=== PATIENT | female | born 1945 | race Caucasian/White ===

== ENCOUNTER → 2016-06-04 | Outpatient (REF) | payer MEDICARE, OTHER ==
[~2016-06-04] MED LIST: /OMEP10CA PO; ASPI325T PO; BIMA01SOL OU; CALCIUM WITH VIT D; DESM1TAB4 PO; FISH120012 PO; HYDR-727; IMBR1CAP PO; LEVA500T; LISI10TA2 PO; MACR100C3 PO; MULTIVIT; NORCOTAB PO; SLOWTAB2 PO; TRAVATAN; Trimethoprim/Sulfamethoxazole PO; ZOCO20TA; ZOFR4SOL PO
[2016-06-04 13:16] LABS: RETIC HEMOGLOBIN CONTENT CHr 33.4 PG (24-36); RETICULOCYTE % ADVIA2120 1.2 % (0.5-1.5)
== END ==
LOC: M LAB REF 12:38
PROVIDERS: ATTEND Internal Medicine Medical Oncology
DX: C91.10 Chronic lymphocytic leukemia of B-cell type not having achieved remission (principal)

== ENCOUNTER → 2016-08-02 | Outpatient (REF) | payer MEDICARE, OTHER ==
[~2016-08-02] MED LIST changes: +CALC600T21 PO; +CRAN500C6 PO; +VITA30004 PO
[2016-08-02 12:39] LABS: RETIC HEMOGLOBIN CONTENT CHr 31.8 PG (24-36); RETICULOCYTE % ADVIA2120 2.4 % (0.5-1.5)
== END ==
LOC: M LAB REF 12:17
PROVIDERS: ATTEND Internal Medicine Medical Oncology
DX: C91.10 Chronic lymphocytic leukemia of B-cell type not having achieved remission (principal)

== ENCOUNTER → 2016-08-08 | Outpatient (CLI) | payer MEDICARE, OTHER ==
[~2016-08-08] VITALS: Ht 167.6 cm; Wt 102.1 kg
[~2016-08-08] MED LIST changes: +LIDOCAINE 2% INJ 100 MG/5 ML SDV (FOR ANES.) As Ordered ONE; +NS 1,000 ML IV SCH; +PROPOFOL 200 MG/20 ML VIAL As Ordered ONE
--- NOTE | 2016-08-08 11:48 | ROOR ---
Patient Name: Ingrid Ellis Procedure Date: 08/08/2016 11:19 AM Date of : 1945 Age: 70 Room: [facility] Gender: Female Note Status: Finalized Procedure: Colonoscopy Indications: Screening for colorectal malignant neoplasm Providers: Hardy HERNANDEZ MD Referring MD: KADEN SHAW MD Requesting Provider: Medicines: Monitored Anesthesia Care Complications: No immediate complications. Procedure: Pre-Anesthesia Assessment: - The heart rate, respiratory rate, oxygen saturations, blood pressure, adequacy of pulmonary ventilation, and response to care were monitored throughout the procedure. The Colonoscope was introduced through the anus and advanced to the cecum, identified by appendiceal orifice and ileocecal valve. The colonoscopy was performed without difficulty. The patient tolerated the procedure well. The quality of the bowel preparation was good. Findings: The perianal and digital rectal examinations were normal. Internal hemorrhoids were found during retroflexion. The hemorrhoids were medium-sized. The colon is long and redundant, but is otherwise normal on direct and retroflexion views. (Exam: Complete, Prep: Good or Excellent.) Impression: - Internal hemorrhoids. - The entire colon is normal on direct and retroflexion views. - No specimens collected. Recommendation: - Repeat colonoscopy in 10 years for screening purposes. Hardy Hernandez MD Hardy HERNANDEZ MD 08/08/2016 11:48:07 AM This report has been signed electronically. Number of Addenda: 0 Note Initiated On: 08/08/2016 11:19 AM Estimated Blood Loss: Estimated blood loss: none.
[2016-08-08 12:10] VITALS: BP 136/72
== END | disposition home or self-care (01) ==
LOC: M OPP 09:54
PROVIDERS: ATTEND Internal Medicine Gastroenterology
DX: Z12.11 Encounter for screening for malignant neoplasm of colon (principal); K64.8 Other hemorrhoids; Q43.8 Other specified congenital malformations of intestine; E78.5 Hyperlipidemia, unspecified; C91.10 Chronic lymphocytic leukemia of B-cell type not having achieved remission; Z92.21 Personal history of antineoplastic chemotherapy; M19.90 Unspecified osteoarthritis, unspecified site; Z78.0 Asymptomatic menopausal state; Z88.8 Allergy status to other drugs, medicaments and biological substances; Z91.041 Radiographic dye allergy status; Z88.0 Allergy status to penicillin; Z91.013 Allergy to seafood; Z79.2 Long term (current) use of antibiotics; Z79.899 Other long term (current) drug therapy; Z80.3 Family history of malignant neoplasm of breast
CPT/HCPCS: 99156; 99157; G0121

== ENCOUNTER → 2016-11-04 | Outpatient (REF) | payer MEDICARE, OTHER ==
[~2016-11-04] MED LIST changes: -LIDOCAINE 2% INJ 100 MG/5 ML SDV (FOR ANES.) As Ordered ONE; -NS 1,000 ML IV SCH; -PROPOFOL 200 MG/20 ML VIAL As Ordered ONE
[2016-11-04 13:07] LABS: RETIC HEMOGLOBIN CONTENT CHr 31.7 PG (24-36); RETICULOCYTE % ADVIA2120 1.3 % (0.5-1.5)
== END ==
LOC: M LAB REF 12:30
PROVIDERS: ATTEND Internal Medicine Medical Oncology
DX: C91.10 Chronic lymphocytic leukemia of B-cell type not having achieved remission (principal)

== ENCOUNTER → 2017-02-04 | Outpatient (REF) | payer MEDICARE, OTHER ==
[~2017-02-04] MED LIST changes: -CALC600T21 PO; +CALC600T60 PO; +CRAN500C PO; -CRAN500C6 PO; -MACR100C3 PO; +MACR100C43 PO
[2017-02-04 13:52] LABS: RETICULOCYTE % 1.5 % (0.5-1.5)
== END ==
LOC: M LAB REF 09:18
PROVIDERS: ATTEND Internal Medicine Medical Oncology
DX: C91.10 Chronic lymphocytic leukemia of B-cell type not having achieved remission (principal)

== ENCOUNTER → 2017-05-07 | Outpatient (REF) | payer MEDICARE, OTHER ==
[2017-05-07 14:01] LABS: RETIC HEMOGLOBIN EQUIVALENT 36.4 pg (24-36); RETICULOCYTE % 1.2 % (0.5-1.5)
== END ==
LOC: M LAB REF 13:28
PROVIDERS: ATTEND Internal Medicine Medical Oncology
DX: C91.10 Chronic lymphocytic leukemia of B-cell type not having achieved remission (principal)

== ENCOUNTER → 2017-08-11 | Outpatient (CLI) | payer MEDICARE, OTHER ==
[2017-08-11 11:37] LABS: ANION GAP 7 MEQ/L (8-16); BLOOD UREA NITROGEN 21 MG/DL (7-18); CALCIUM LEVEL 8.8 MG/DL (8.8-10.2); CARBON DIOXIDE LEVEL 28 MEQ/L (21-32); CHLORIDE LEVEL 112 MEQ/L (98-107); CREATININE FOR GFR 0.88 MG/DL (0.55-1.30); GLOMERULAR FILTRATION RATE > 60.0 (>39); GLUCOSE, FASTING 77 MG/DL (70-100); POTASSIUM SERUM 4.6 MEQ/L (3.5-5.1); SODIUM LEVEL 147 MEQ/L (136-145)
[2017-08-11 11:39] LABS: INR 0.98; PROTHROMBIN TIME 13.1 SECONDS (12.4-14.5)
[2017-08-11 11:40] LABS: PARTIAL THROMBOPLASTIN TIME 27.6 SECONDS (26.8-37.9)
== END ==
LOC: M LAB 10:33
DX: Z01.818 Encounter for other preprocedural examination (principal)
CPT/HCPCS: 71046

== ENCOUNTER 2017-08-18 11:17 | Day surgery (SDC) | payer MEDICARE, OTHER ==
[2017-08-18] MEDS: LR 1,000 ML IV (12:06)
[2017-08-18] MEDS: VANCOMYCIN HCL 1,000 MG, VIAL MATE ADAPTER 1 EACH in D5W 250 ML IV (12:21)
[2017-08-18] MEDS ORDERED: fentaNYL 100 MCG/2 ML INJECTION (J3010) As Ordered (13:09)
[2017-08-18] MEDS ORDERED: MIDAZOLAM INJ 2 MG/2 ML VIAL (J2250) As Ordered (13:09)
[2017-08-18] MEDS ORDERED: PROPOFOL 200 MG/20 ML VIAL As Ordered (13:09)
[2017-08-18] MEDS: MUPIROCIN 2% OINT 22 GM TUBE TOP (13:18)
[2017-08-18] MEDS: BUPIVACAINE LIPOSOME/PF 1.3% 20 ML VIAL (13.3MG/ML)(EXPAREL) As Ordered (13:26)
[2017-08-18] MEDS ORDERED: PERCOCET 5MG/325MG TAB PO ×2 (14:15)
[2017-08-18] MEDS ORDERED: MORPHINE 10 MG/ML 1ML VIAL (J2270) IV (14:15)
[2017-08-18] MEDS ORDERED: ONDANSETRON 4MG/2ML VIAL (J2405) IV (14:15)
[2017-08-18] MEDS ORDERED: LR 1,000 ML IV (14:15)
[2017-08-18] MEDS ORDERED: fentaNYL 100 MCG/2 ML INJECTION (J3010) IV (14:15)
== END 2017-08-18 15:08 | disposition home or self-care (01) ==
LOC: M SDC 11:17
DX: Z45.2 Encounter for adjustment and management of vascular access device (principal); C91.11 Chronic lymphocytic leukemia of B-cell type in remission; H40.9 Unspecified glaucoma; E78.5 Hyperlipidemia, unspecified; E23.2 Diabetes insipidus; I10 Essential (primary) hypertension; D64.9 Anemia, unspecified; R23.3 Spontaneous ecchymoses; M12.9 Arthropathy, unspecified; Z88.0 Allergy status to penicillin; Z88.8 Allergy status to other drugs, medicaments and biological substances; Z91.013 Allergy to seafood; Z91.041 Radiographic dye allergy status; Z79.899 Other long term (current) drug therapy; Z96.1 Presence of intraocular lens; Z92.21 Personal history of antineoplastic chemotherapy; Z87.81 Personal history of (healed) traumatic fracture; Z78.0 Asymptomatic menopausal state
CPT/HCPCS: 36590

== ENCOUNTER → 2018-03-02 | Outpatient (CLI) | payer MEDICARE, OTHER | LOC: M WHC 14:15 | DX: Z12.31 Encounter for screening mammogram for malignant neoplasm of breast (principal) | CPT/HCPCS: 77067 ==

== ENCOUNTER → 2019-03-12 | Outpatient (CLI) | payer MEDICARE, OTHER ==
[~2019-03-12] MED LIST changes: +ASPI-1 PO; -ASPI325T PO; +DESM0.1T2 PO; -DESM1TAB4 PO; +FISH120016 PO; +HYDR-3715 PO; +LIPI10TA PO; +MAGN250T7 PO; -NORCOTAB PO; +PREDOPD; +TIMOXEOPD OP
--- NOTE | 2019-03-12 13:35 | REP ---
Chest x-ray: Three views. History: Dyspnea. Comparison chest x-ray: August 18, 2017. Findings: The lungs are symmetrically aerated and clear. The pleural angles are sharp. Heart size is normal. Pulmonary vasculature is not increased. The thoracic aorta somewhat tortuous as before. Impression: No active disease. Electronically Signed by James Finnegan MD 03/12/2019 01:26 P
== END ==
LOC: M WUC 12:32
PROVIDERS: ATTEND Internal Medicine
DX: R06.09 Other forms of dyspnea (principal)

== ENCOUNTER → 2019-03-22 | Outpatient (CLI) | payer MEDICARE, OTHER ==
--- NOTE | 2019-03-22 13:57 | REPMRS ---
Patient History The patient states she has not had a clinical breast exam in over a year. Family history of breast cancer at age 60 in mother, prostate cancer at age 70 in maternal uncle, breast cancer at age 50 in maternal aunt. 3D TOMOSYNTHESIS WAS PERFORMED. The Cher Siddiqui lifetime risk for breast cancer is 9.5%. Digital Woman Screen Mammo: March 22, 2019 - Exam #: [id number] Bilateral CC and MLO view(s) were taken. Technologist: Makenna Moreno Technologist Prior study comparison: March 02, 2018, bilateral digital woman screen mammo performed at [facility]. 2017, bilateral digital woman screen mammo, performed at [facility]. FINDINGS: There are scattered fibroglandular densities. There has been no change in the appearance of the mammogram from the prior studies. There is a mild amount of residual fibroglandular tissue which is fairly symmetric. There is no interval development of dominant mass, architectural distortion, or clustered microcalcification suggestive of malignancy. Assessment: BI-RADS/ACR category 1 mammogram. Negative Mammogram. Recommendation Routine screening mammogram in 1 year (for women over age 40). This mammogram was interpreted with the aid of an FDA-approved computer-aided dectection system. Electronically Signed By: Bakari Coronado MD 03/22/19 [id number]
== END ==
LOC: M WHC 12:57
PROVIDERS: ATTEND Internal Medicine
DX: Z12.31 Encounter for screening mammogram for malignant neoplasm of breast (principal); Z80.3 Family history of malignant neoplasm of breast

== ENCOUNTER → 2019-11-02 | Outpatient (CLI) | payer MEDICARE, OTHER ==
[~2019-11-02] MED LIST changes: +SIMB1SUS OP
[2019-11-02 17:07] LABS: BASO % 0.6 % (0.0-1.0); EOS # 0.3 10^3/uL (0.0-0.5); EOS % 5.3 % (0.0-3.0); HEMATOCRIT 41.7 % (36.0-47.0); HEMOGLOBIN 13.2 g/dl (12.0-15.5); LYMPH # 1.7 10^3/uL (1.5-5.0); LYMPH % 35.4 % (24.0-44.0); MEAN CORPUSCULAR HEMOGLOBIN 30.2 pg (27.0-33.0); MEAN CORPUSCULAR HGB CONC 31.7 g/dl (32.0-36.5); MEAN CORPUSCULAR VOLUME 95.4 fl (80.0-96.0); MONO # 0.8 10^3/uL (0.0-0.8); MONO % 15.9 % (0.0-5.0); NEUTROPHILS # 2.1 10^3/uL (1.5-8.5); NEUTROPHILS % 42.2 % (36.0-66.0); RED BLOOD COUNT 4.37 10^6/uL (4.00-5.40); WHITE BLOOD COUNT 4.9 10^3/uL (4.0-10.0)
[2019-11-02 17:10] LABS: PLATELET COUNT, AUTOMATED 89 10^3/uL (150-450)
[2019-11-02 18:39] LABS: ALBUMIN 3.7 GM/DL (3.2-5.2); ALT/SGPT 38 U/L (12-78); BILIRUBIN,TOTAL 0.6 MG/DL (0.2-1.0); BLOOD UREA NITROGEN 20 MG/DL (7-18); CALCIUM LEVEL 9.1 MG/DL (8.8-10.2); CARBON DIOXIDE LEVEL 30 MEQ/L (21-32); CHLORIDE LEVEL 109 MEQ/L (98-107); CREATININE FOR GFR 0.94 MG/DL (0.55-1.30); GLOMERULAR FILTRATION RATE > 60.0 (>39); GLUCOSE, FASTING 78 MG/DL (70-100); IMMUNOGLOBULIN A 12.5 MG/DL (70-400); IMMUNOGLOBULIN G 79 MG/DL (681-1648); LDH LACTATE DEHYDROGENASE 248 U/L (84-246); SODIUM LEVEL 144 MEQ/L (136-145); TOTAL 25(OH) VITAMIN D 73.6 NG/ML (30.0-100.0); TOTAL PROTEIN 5.5 GM/DL (6.4-8.2)
[2019-11-02 19:43] LABS: IMMUNOGLOBULIN M < 5.3 MG/DL (40-230)
== END ==
LOC: M LAB 15:24
PROVIDERS: ATTEND Internal Medicine Hematology
DX: C91.10 Chronic lymphocytic leukemia of B-cell type not having achieved remission (principal); E23.2 Diabetes insipidus; E55.9 Vitamin D deficiency, unspecified

== ENCOUNTER → 2019-11-02 | Outpatient (CLI) | payer MEDICARE, OTHER ==
[2019-11-02 19:55] LABS: ALBUMIN 3.8 GM/DL (3.2-5.2); ALT/SGPT 36 U/L (12-78); BILIRUBIN,TOTAL 0.6 MG/DL (0.2-1.0); BLOOD UREA NITROGEN 21 MG/DL (7-18); CALCIUM LEVEL 9.4 MG/DL (8.8-10.2); CARBON DIOXIDE LEVEL 29 MEQ/L (21-32); CHLORIDE LEVEL 110 MEQ/L (98-107); CREATININE FOR GFR 0.91 MG/DL (0.55-1.30); GLOMERULAR FILTRATION RATE > 60.0 (>39); GLUCOSE, FASTING 75 MG/DL (70-100); POTASSIUM SERUM 3.9 MEQ/L (3.5-5.1); SODIUM LEVEL 143 MEQ/L (136-145); TOTAL PROTEIN 5.8 GM/DL (6.4-8.2)
== END ==
LOC: M LAB 15:29
PROVIDERS: ATTEND Internal Medicine Endocrinology, Diabetes & Metabolism
DX: E23.2 Diabetes insipidus (principal); E55.9 Vitamin D deficiency, unspecified

== ENCOUNTER → 2020-01-31 | Outpatient (CLI) | payer MEDICARE, OTHER ==
[~2020-01-31] MED LIST changes: +zioptan OU
[2020-01-31 11:25] LABS: BASO % 0.6 % (0.0-1.0); EOS # 0.2 10^3/uL (0.0-0.5); EOS % 3.8 % (0.0-3.0); HEMATOCRIT 42.3 % (36.0-47.0); HEMOGLOBIN 13.6 g/dl (12.0-15.5); LYMPH # 1.7 10^3/uL (1.5-5.0); LYMPH % 33.6 % (24.0-44.0); MEAN CORPUSCULAR HEMOGLOBIN 31.1 pg (27.0-33.0); MEAN CORPUSCULAR HGB CONC 32.2 g/dl (32.0-36.5); MEAN CORPUSCULAR VOLUME 96.6 fl (80.0-96.0); MONO # 0.7 10^3/uL (0.0-0.8); MONO % 13.7 % (0.0-5.0); NEUTROPHILS # 2.4 10^3/uL (1.5-8.5); NEUTROPHILS % 47.7 % (36.0-66.0); PLATELET COUNT, AUTOMATED 97 10^3/uL (150-450); RED BLOOD COUNT 4.38 10^6/uL (4.00-5.40)
[2020-01-31 19:00] LABS: ALBUMIN 3.5 GM/DL (3.2-5.2); ALT/SGPT 20 U/L (12-78); BILIRUBIN,TOTAL 0.5 MG/DL (0.2-1.0); BLOOD UREA NITROGEN 17 MG/DL (7-18); CALCIUM LEVEL 9.4 MG/DL (8.8-10.2); CARBON DIOXIDE LEVEL 31 MEQ/L (21-32); CHLORIDE LEVEL 112 MEQ/L (98-107); CREATININE FOR GFR 0.98 MG/DL (0.55-1.30); GLOMERULAR FILTRATION RATE 59.2 (>39); GLUCOSE, FASTING 75 MG/DL (70-100); IMMUNOGLOBULIN A 13.1 MG/DL (70-400); IMMUNOGLOBULIN G 76 MG/DL (681-1648); IMMUNOGLOBULIN M < 5.3 MG/DL (40-230); POTASSIUM SERUM 4.3 MEQ/L (3.5-5.1); SODIUM LEVEL 146 MEQ/L (136-145); TOTAL PROTEIN 5.6 GM/DL (6.4-8.2); URIC ACID 7.3 MG/DL (2.6-6.0)
== END ==
LOC: M LAB 10:03
PROVIDERS: ATTEND Internal Medicine Hematology & Oncology
DX: C91.10 Chronic lymphocytic leukemia of B-cell type not having achieved remission (principal)

== ENCOUNTER → 2020-02-28 | Outpatient (CLI) | payer MEDICARE, OTHER ==
[2020-02-28 09:26] LABS: HEMATOCRIT 40.1 % (36.0-47.0); HEMOGLOBIN 12.8 g/dl (12.0-15.5); MEAN CORPUSCULAR HEMOGLOBIN 30.7 pg (27.0-33.0); MEAN CORPUSCULAR HGB CONC 31.9 g/dl (32.0-36.5); MEAN CORPUSCULAR VOLUME 96.2 fl (80.0-96.0); PLATELET COUNT, AUTOMATED 108 10^3/uL (150-450); RED BLOOD COUNT 4.17 10^6/uL (4.00-5.40); WHITE BLOOD COUNT 4.7 10^3/uL (4.0-10.0)
== END ==
LOC: M LAB 08:34
PROVIDERS: ATTEND Dentist
DX: C95.92 Leukemia, unspecified, in relapse (principal)

== ENCOUNTER → 2020-05-01 | Outpatient (CLI) | payer MEDICARE, OTHER ==
[~2020-05-01] MED LIST changes: +CHOLPOW39 XX
[2020-05-01 12:23] LABS: BASO % 0.5 % (0.0-1.0); EOS # 0.3 10^3/uL (0.0-0.5); EOS % 4.2 % (0.0-3.0); HEMATOCRIT 40.1 % (36.0-47.0); HEMOGLOBIN 12.4 g/dl (12.0-15.5); LYMPH # 3.1 10^3/uL (1.5-5.0); LYMPH % 49.6 % (24.0-44.0); MEAN CORPUSCULAR HGB CONC 30.9 g/dl (32.0-36.5); MEAN CORPUSCULAR VOLUME 97.1 fl (80.0-96.0); MONO # 0.9 10^3/uL (0.0-0.8); MONO % 13.8 % (0.0-5.0); NEUTROPHILS % 31.4 % (36.0-66.0); RED BLOOD COUNT 4.13 10^6/uL (4.00-5.40); WHITE BLOOD COUNT 6.2 10^3/uL (4.0-10.0)
[2020-05-01 12:55] LABS: PLATELET COUNT, AUTOMATED 79 10^3/uL (150-450)
[2020-05-01 13:41] LABS: ALBUMIN 3.6 GM/DL (3.2-5.2); BILIRUBIN,TOTAL 0.6 MG/DL (0.2-1.0); CALCIUM LEVEL 9.6 MG/DL (8.8-10.2); CREATININE FOR GFR 1.01 MG/DL (0.55-1.30); GLOMERULAR FILTRATION RATE 57.2 (>39); IMMUNOGLOBULIN A 11.2 MG/DL (70-400); IMMUNOGLOBULIN M 11.2 MG/DL (40-230); TOTAL PROTEIN 5.4 GM/DL (6.4-8.2); URIC ACID 7.3 MG/DL (2.6-6.0)
== END ==
LOC: M LAB 11:18
PROVIDERS: ATTEND Internal Medicine Hematology & Oncology
DX: C91.10 Chronic lymphocytic leukemia of B-cell type not having achieved remission (principal)

== ENCOUNTER → 2020-07-31 | Outpatient (CLI) | payer MEDICARE, OTHER ==
[2020-07-31 13:22] LABS: BASO # 0.1 10^3/uL (0.0-0.2); BASO % 0.6 % (0.0-1.0); EOS # 0.4 10^3/uL (0.0-0.5); EOS % 4.5 % (0.0-3.0); HEMATOCRIT 42.2 % (36.0-47.0); HEMOGLOBIN 13.5 g/dl (12.0-15.5); LYMPH # 4.9 10^3/uL (1.5-5.0); LYMPH % 59.8 % (24.0-44.0); MEAN CORPUSCULAR HEMOGLOBIN 30.5 pg (27.0-33.0); MEAN CORPUSCULAR VOLUME 95.5 fl (80.0-96.0); MONO # 0.8 10^3/uL (0.0-0.8); MONO % 9.7 % (2.0-8.0); RED BLOOD COUNT 4.42 10^6/uL (4.00-5.40); WHITE BLOOD COUNT 8.1 10^3/uL (4.0-10.0)
[2020-07-31 13:28] LABS: PLATELET COUNT, AUTOMATED 80 10^3/uL (150-450)
[2020-07-31 14:02] LABS: ALBUMIN 3.7 GM/DL (3.2-5.2); ALT/SGPT 24 U/L (12-78); BILIRUBIN,TOTAL 0.5 MG/DL (0.2-1.0); BLOOD UREA NITROGEN 20 MG/DL (7-18); CALCIUM LEVEL 9.7 MG/DL (8.8-10.2); CARBON DIOXIDE LEVEL 27 MEQ/L (21-32); CHLORIDE LEVEL 103 MEQ/L (98-107); CREATININE FOR GFR 0.96 MG/DL (0.55-1.30); GLOMERULAR FILTRATION RATE > 60.0 (>39); GLUCOSE, FASTING 73 MG/DL (70-100); POTASSIUM SERUM 4.5 MEQ/L (3.5-5.1); SODIUM LEVEL 136 MEQ/L (136-145); TOTAL PROTEIN 5.8 GM/DL (6.4-8.2)
== END ==
LOC: M LAB 12:15
PROVIDERS: ATTEND Internal Medicine Hematology & Oncology
DX: C91.10 Chronic lymphocytic leukemia of B-cell type not having achieved remission (principal); Z79.899 Other long term (current) drug therapy

== ENCOUNTER → 2020-10-31 | Outpatient (CLI) | payer MEDICARE, OTHER ==
[2020-10-31 12:19] LABS: BASO # 0.1 10^3/uL (0.0-0.2); BASO % 0.6 % (0.0-1.0); EOS # 0.4 10^3/uL (0.0-0.5); EOS % 3.7 % (0.0-3.0); HEMATOCRIT 38.1 % (36.0-47.0); HEMOGLOBIN 11.9 g/dl (12.0-15.5); LYMPH # 7.3 10^3/uL (1.5-5.0); LYMPH % 63.3 % (24.0-44.0); MEAN CORPUSCULAR HEMOGLOBIN 30.7 pg (27.0-33.0); MEAN CORPUSCULAR HGB CONC 31.2 g/dl (32.0-36.5); MEAN CORPUSCULAR VOLUME 98.4 fl (80.0-96.0); MONO % 17.3 % (2.0-8.0); NEUTROPHILS # 1.6 10^3/uL (1.5-8.5); NEUTROPHILS % 14.3 % (36.0-66.0); RED BLOOD COUNT 3.87 10^6/uL (4.00-5.40)
[2020-10-31 12:24] LABS: PLATELET COUNT, AUTOMATED 90 10^3/uL (150-450); WHITE BLOOD COUNT 11.5 10^3/uL (4.0-10.0)
[2020-10-31 12:43] LABS: ALBUMIN 3.5 GM/DL (3.2-5.2); ALT/SGPT 30 U/L (12-78); BILIRUBIN,TOTAL 0.7 MG/DL (0.2-1.0); BLOOD UREA NITROGEN 19 MG/DL (7-18); CALCIUM LEVEL 9.6 MG/DL (8.8-10.2); CARBON DIOXIDE LEVEL 30 MEQ/L (21-32); CHLORIDE LEVEL 107 MEQ/L (98-107); CREATININE FOR GFR 0.85 MG/DL (0.55-1.30); GLOMERULAR FILTRATION RATE > 60.0 (>39); GLUCOSE, FASTING 66 MG/DL (70-100); POTASSIUM SERUM 4.7 MEQ/L (3.5-5.1); SODIUM LEVEL 142 MEQ/L (136-145); TOTAL PROTEIN 5.6 GM/DL (6.4-8.2); URIC ACID 7.7 MG/DL (2.6-6.0)
== END ==
LOC: M LAB 11:39
PROVIDERS: ATTEND Internal Medicine Hematology & Oncology
DX: C91.10 Chronic lymphocytic leukemia of B-cell type not having achieved remission (principal)

== ENCOUNTER → 2020-11-27 | Outpatient (CLI) | payer MEDICARE, OTHER ==
[2020-11-27 12:47] LABS: ALBUMIN 3.2 GM/DL (3.2-5.2); ALT/SGPT 35 U/L (12-78); BILIRUBIN,TOTAL 0.7 MG/DL (0.2-1.0); BLOOD UREA NITROGEN 18 MG/DL (7-18); CALCIUM LEVEL 9.4 MG/DL (8.8-10.2); CARBON DIOXIDE LEVEL 30 MEQ/L (21-32); CHLORIDE LEVEL 109 MEQ/L (98-107); CREATININE FOR GFR 0.76 MG/DL (0.55-1.30); GLOMERULAR FILTRATION RATE > 60.0 (>39); GLUCOSE, FASTING 77 MG/DL (70-100); SODIUM LEVEL 143 MEQ/L (136-145); TOTAL PROTEIN 5.1 GM/DL (6.4-8.2)
[2020-11-27 12:55] LABS: TOTAL 25(OH) VITAMIN D 83.3 NG/ML (30.0-100.0)
== END ==
LOC: M LAB 11:40
PROVIDERS: ATTEND Internal Medicine Endocrinology, Diabetes & Metabolism
DX: E55.9 Vitamin D deficiency, unspecified (principal); E23.2 Diabetes insipidus; Z79.899 Other long term (current) drug therapy

== ENCOUNTER → 2020-12-29 | Outpatient (CLI) | payer MEDICARE, OTHER ==
[2020-12-29 11:10] LABS: BASO # 0.1 10^3/uL (0.0-0.2); BASO % 0.4 % (0.0-1.0); EOS # 0.4 10^3/uL (0.0-0.5); EOS % 2.1 % (0.0-3.0); HEMATOCRIT 36.4 % (36.0-47.0); HEMOGLOBIN 11.5 g/dl (12.0-15.5); LYMPH # 15.8 10^3/uL (1.5-5.0); LYMPH % 78.6 % (24.0-44.0); MEAN CORPUSCULAR HEMOGLOBIN 30.6 pg (27.0-33.0); MEAN CORPUSCULAR HGB CONC 31.6 g/dl (32.0-36.5); MEAN CORPUSCULAR VOLUME 96.8 fl (80.0-96.0); MONO # 1.5 10^3/uL (0.0-0.8); MONO % 7.3 % (2.0-8.0); NEUTROPHILS # 2.2 10^3/uL (1.5-8.5); NEUTROPHILS % 10.9 % (36.0-66.0); PLATELET COUNT, AUTOMATED 103 10^3/uL (150-450); RED BLOOD COUNT 3.76 10^6/uL (4.00-5.40)
[2020-12-29 11:12] LABS: WHITE BLOOD COUNT 20.1 10^3/uL (4.0-10.0)
[2020-12-29 11:35] LABS: ALBUMIN 3.6 GM/DL (3.2-5.2); ALT/SGPT 22 U/L (12-78); BILIRUBIN,TOTAL 0.7 MG/DL (0.2-1.0); BLOOD UREA NITROGEN 15 MG/DL (7-18); CALCIUM LEVEL 9.5 MG/DL (8.8-10.2); CARBON DIOXIDE LEVEL 32 MEQ/L (21-32); CHLORIDE LEVEL 109 MEQ/L (98-107); CREATININE FOR GFR 0.92 MG/DL (0.55-1.30); GLOMERULAR FILTRATION RATE > 60.0 (>39); GLUCOSE, FASTING 80 MG/DL (70-100); POTASSIUM SERUM 4.2 MEQ/L (3.5-5.1); SODIUM LEVEL 141 MEQ/L (136-145); TOTAL PROTEIN 5.9 GM/DL (6.4-8.2)
== END ==
LOC: M LAB 10:25
PROVIDERS: ATTEND Internal Medicine Hematology & Oncology
DX: C91.10 Chronic lymphocytic leukemia of B-cell type not having achieved remission (principal)

== ENCOUNTER → 2021-02-12 | Outpatient (CLI) | payer MEDICARE, OTHER ==
[2021-02-12 14:10] LABS: BASO # 0.1 10^3/uL (0.0-0.2); BASO % 0.3 % (0.0-1.0); EOS # 0.5 10^3/uL (0.0-0.5); EOS % 1.5 % (0.0-3.0); HEMATOCRIT 35.7 % (36.0-47.0); HEMOGLOBIN 11.3 g/dl (12.0-15.5); LYMPH # 30.7 10^3/uL (1.5-5.0); LYMPH % 82.7 % (24.0-44.0); MEAN CORPUSCULAR HGB CONC 31.7 g/dl (32.0-36.5); MEAN CORPUSCULAR VOLUME 97.8 fl (80.0-96.0); MONO # 3.5 10^3/uL (0.0-0.8); MONO % 9.4 % (2.0-8.0); NEUTROPHILS # 2.1 10^3/uL (1.5-8.5); NEUTROPHILS % 5.6 % (36.0-66.0); PLATELET COUNT, AUTOMATED 105 10^3/uL (150-450); RED BLOOD COUNT 3.65 10^6/uL (4.00-5.40)
[2021-02-12 14:16] LABS: WHITE BLOOD COUNT 37.2 10^3/uL (4.0-10.0)
[2021-02-12 14:36] LABS: ALBUMIN 3.7 GM/DL (3.2-5.2); ALT/SGPT 29 U/L (12-78); BILIRUBIN,TOTAL 0.8 MG/DL (0.2-1.0); BLOOD UREA NITROGEN 23 MG/DL (7-18); CALCIUM LEVEL 9.6 MG/DL (8.8-10.2); CARBON DIOXIDE LEVEL 26 MEQ/L (21-32); CHLORIDE LEVEL 105 MEQ/L (98-107); CREATININE FOR GFR 0.89 MG/DL (0.55-1.30); GLOMERULAR FILTRATION RATE > 60.0 (>39); GLUCOSE, FASTING 73 MG/DL (70-100); LDH LACTATE DEHYDROGENASE 373 U/L (84-246); POTASSIUM SERUM 4.4 MEQ/L (3.5-5.1); SODIUM LEVEL 139 MEQ/L (136-145); TOTAL PROTEIN 5.8 GM/DL (6.4-8.2)
== END ==
LOC: M LAB 13:21
PROVIDERS: ATTEND Internal Medicine Medical Oncology
DX: C91.10 Chronic lymphocytic leukemia of B-cell type not having achieved remission (principal)

== ENCOUNTER → 2021-03-12 | Outpatient (CLI) | payer MEDICARE, OTHER ==
[2021-03-12 12:41] LABS: BASO # 0.2 10^3/uL (0.0-0.2); BASO % 0.4 % (0.0-1.0); EOS # 0.7 10^3/uL (0.0-0.5); EOS % 1.6 % (0.0-3.0); HEMATOCRIT 34.7 % (36.0-47.0); HEMOGLOBIN 10.7 g/dl (12.0-15.5); LYMPH # 34.9 10^3/uL (1.5-5.0); LYMPH % 83.6 % (24.0-44.0); MEAN CORPUSCULAR HEMOGLOBIN 30.7 pg (27.0-33.0); MEAN CORPUSCULAR HGB CONC 30.8 g/dl (32.0-36.5); MEAN CORPUSCULAR VOLUME 99.7 fl (80.0-96.0); MONO # 3.4 10^3/uL (0.0-0.8); MONO % 8.2 % (2.0-8.0); NEUTROPHILS # 2.4 10^3/uL (1.5-8.5); NEUTROPHILS % 5.6 % (36.0-66.0); RED BLOOD COUNT 3.48 10^6/uL (4.00-5.40)
[2021-03-12 12:43] LABS: PLATELET COUNT, AUTOMATED 92 10^3/uL (150-450); WHITE BLOOD COUNT 41.7 10^3/uL (4.0-10.0)
[2021-03-12 13:09] LABS: ALBUMIN 3.5 GM/DL (3.2-5.2); BILIRUBIN,TOTAL 0.7 MG/DL (0.2-1.0); CALCIUM LEVEL 9.8 MG/DL (8.8-10.2); CREATININE FOR GFR 0.99 MG/DL (0.55-1.30); GLOMERULAR FILTRATION RATE 58.4 (>39); TOTAL PROTEIN 5.4 GM/DL (6.4-8.2)
== END ==
LOC: M LAB 10:06
PROVIDERS: ATTEND Internal Medicine Hematology & Oncology
DX: C91.10 Chronic lymphocytic leukemia of B-cell type not having achieved remission (principal)

== ENCOUNTER → 2021-03-22 | Outpatient (CLI) | payer MEDICARE, OTHER ==
--- NOTE | 2021-03-22 14:47 | REP ---
INDICATION: CLL VS SLL COMPARISON: 05/04/2019 the latest prior also without contrast TECHNIQUE: Standard helical technique without contrast. This causes exam limitations. FINDINGS: There is evidence of extensive adenopathy in the supra and infraclavicular regions bilaterally and in the imaged neck root bilaterally but left greater than right. There is extensive bilateral axillary adenopathy. Borderline and mildly enlarged mediastinal lymph nodes have developed. Hilar adenopathy cannot be ruled out since no intravenous contrast was administered. There are no pleural or pericardial effusions. The imaged upper abdomen shows evidence of extensive central adenopathy difficult to evaluate on this noncontrast enhanced chest CT. There is no significant change in appearance of the imaged osseous structures. Evaluation of the lung celis shows 4 mm size nodule in the left lower lobe. No other new abnormal nodules, masses, or opacities have developed. IMPRESSION: 1. Extensive adenopathy and suspected adenopathy as described above. 2. New 4 mm size nodule in the left lower lobe. Three-month follow-up chest CT is recommended. <Electronically signed by Spencer Arndt > 03/22/21 [id number]
--- NOTE | 2021-03-22 14:52 | REP ---
INDICATION: CLL VS SLL. COMPARISON: 09/09/2013 the latest prior also without contrast TECHNIQUE: Standard helical technique without intravenous or oral bowel preparatory contrast. This causes exam limitations. FINDINGS: The liver is unremarkable. There is cholelithiasis. There is splenomegaly. There is extensive adenopathy throughout the retroperitoneum and throughout the mesentery with large soft tissue masses in the retroperitoneum and the mid abdomen but difficult to evaluate without intravenous or particularly oral bowel preparatory contrast administration. Masses cannot be distinguished from noncontrast opacified small bowel loops. There is no free fluid or free air. There are a few nonobstructing right nephroliths. Kidneys are otherwise unremarkable. The adrenal glands are within normal limits. The abdominal aorta cannot be commented on since it is masked by the massive adenopathy of similar density. The pancreas is grossly unremarkable although it too is difficult to evaluate. Bone window technique throughout the exam shows no significant change in the osseous structures. IMPRESSION: 1. There is extensive and massive adenopathy and soft tissue mass is in the abdomen and pelvis, as described above, all of which has either increased or developed since the last exam. 2. Marked exam limitations as described above. 3. Splenomegaly. 4. Cholelithiasis which has developed since the last exam. 5. Nonobstructing right nephroliths. 6. Other findings as described above. <Electronically signed by Spencer Arndt > 03/22/21 1952
--- NOTE | 2021-03-22 16:11 | REPVR ---
PROCEDURE INFORMATION: Exam: CT Neck Without Contrast Exam date and time: 03/22/2021 2:09 PM Age: 75 years old Clinical indication: Neck pain; Additional info: Cll vs sll TECHNIQUE: Imaging protocol: Computed tomography images of the neck without contrast. Radiation optimization: All CT scans at this facility use at least one of these dose optimization techniques: automated exposure control; mA and/or kV adjustment per patient size (includes targeted exams where dose is matched to clinical indication); or iterative reconstruction. COMPARISON: CT Chest without contrast 12/30/2014 2:42 PM FINDINGS: Mastoid air cells: The mastoid air cells appear clear. Paranasal sinuses: Clear paranasal sinuses. Nasopharynx: Nasopharynx appears clear. Oropharynx: The oropharynx appears symmetric. Hypopharynx: The hypopharynx appears symmetric. Lymph nodes: There are approximately 6 lymph nodes on the right and 6 lymph nodes on the left surrounding the submandibular gland and measuring approximately 1 cm to 2.2 cm each. There are approximately 10 lymph nodes on the right and 10 lymph nodes on the left posterior triangle region each measuring approximately 1 cm to 1.5 cm. Multiple lymph nodes are noted at the right and left carotid bifurcation measuring approximately 1 cm. There is massive lymphadenopathy in the retroclavicular regions much greater on the left. On the left there are lymph nodes as large as 3.8 cm. This lymphadenopathy is along the posterior aspect the clavicle/retroclavicular. There is also significant lymphadenopathy at the left axilla. Normal-sized thyroid but displaced by the lymphadenopathy on the left. Trachea: Visualized trachea is unremarkable. Lungs: The apical portions of the lung appear clear. IMPRESSION: Very extensive lymphadenopathy surrounding the submandibular glands, right and left side of the neck, posterior triangle regions. Massive lymphadenopathy at the left retro clavicular and left axillary regions. The Electronically signed by: Zoltan Fairbanks On 03/22/2021 16:10:57 PM
== END ==
LOC: M RAD 13:55
PROVIDERS: ATTEND Internal Medicine Medical Oncology
DX: C91.10 Chronic lymphocytic leukemia of B-cell type not having achieved remission (principal); K80.20 Calculus of gallbladder without cholecystitis without obstruction; N20.0 Calculus of kidney; R16.1 Splenomegaly, not elsewhere classified; R19.00 Intra-abdominal and pelvic swelling, mass and lump, unspecified site; R59.9 Enlarged lymph nodes, unspecified; R91.8 Other nonspecific abnormal finding of lung field

== ENCOUNTER → 2021-04-09 | Outpatient (CLI) | payer MEDICARE, OTHER ==
[2021-04-09 14:48] LABS: BASO # 0.1 10^3/uL (0.0-0.2); BASO % 0.1 % (0.0-1.0); EOS # 0.5 10^3/uL (0.0-0.5); EOS % 0.6 % (0.0-3.0); HEMATOCRIT 29.8 % (36.0-47.0); HEMOGLOBIN 9.1 g/dl (12.0-15.5); LYMPH # 71.5 10^3/uL (1.5-5.0); LYMPH % 87.8 % (24.0-44.0); MEAN CORPUSCULAR HEMOGLOBIN 31.4 pg (27.0-33.0); MEAN CORPUSCULAR HGB CONC 30.5 g/dl (32.0-36.5); MEAN CORPUSCULAR VOLUME 102.8 fl (80.0-96.0); MONO # 6.5 10^3/uL (0.0-0.8); NEUTROPHILS # 2.5 10^3/uL (1.5-8.5); NEUTROPHILS % 3.1 % (36.0-66.0)
[2021-04-09 14:53] LABS: PLATELET COUNT, AUTOMATED 93 10^3/uL (150-450); WHITE BLOOD COUNT 81.4 10^3/uL (4.0-10.0)
[2021-04-09 15:01] LABS: ALBUMIN 3.4 GM/DL (3.2-5.2); BILIRUBIN,TOTAL 0.6 MG/DL (0.2-1.0); CALCIUM LEVEL 9.2 MG/DL (8.8-10.2); CREATININE FOR GFR 1.13 MG/DL (0.55-1.30); GLOMERULAR FILTRATION RATE 50.1 (>39); MAGNESIUM LEVEL 2.1 MG/DL (1.8-2.4); TOTAL PROTEIN 5.2 GM/DL (6.4-8.2)
== END ==
LOC: M LAB 14:10
PROVIDERS: ATTEND Internal Medicine Hematology & Oncology
DX: C91.10 Chronic lymphocytic leukemia of B-cell type not having achieved remission (principal)

== ENCOUNTER → 2023-02-07 | Outpatient (CLI) | payer MEDICARE, OTHER ==
[~2023-02-07] MED LIST changes: +DESM0.1T16 PO; -DESM0.1T2 PO; +ZIOPTAN OU
[2023-02-11 13:08] LABS: HE4 59.5 pmol/L (0.0-96.9)
== END ==
LOC: M PLALAB 10:03
PROVIDERS: ATTEND Obstetrics & Gynecology
DX: N83.201 Unspecified ovarian cyst, right side (principal)

== ENCOUNTER → 2023-02-11 | Outpatient (CLI) | payer MEDICARE, OTHER | LOC: M WHC 09:02 | PROVIDERS: ATTEND Obstetrics & Gynecology | DX: N83.201 Unspecified ovarian cyst, right side (principal); N83.202 Unspecified ovarian cyst, left side ==

== ENCOUNTER → 2024-01-14 | Outpatient (CLI) | payer MEDICARE, OTHER ==
[~2024-01-14] MED LIST changes: +ACYC200C8 PO; +AMLO1TAB25 PO; +BRIN8DRO OU; +ONDA-282 SL; +TAFL1DRO2 OU; +VENC100T PO
== END ==
LOC: M PLAIMG 16:11
PROVIDERS: ATTEND Internal Medicine
DX: R06.00 Dyspnea, unspecified (principal); J90 Pleural effusion, not elsewhere classified

== ENCOUNTER 2024-01-15 12:42 | Inpatient (IN) | payer MEDICARE, OTHER ==
[~2024-01-15] VITALS: Ht 167.6 cm; Wt 75.8 kg
[~2024-01-15 12:42] MED LIST changes: -ACYC200C8 PO; -AMLO1TAB25 PO; -BRIN8DRO OU; -ONDA-282 SL; -TAFL1DRO2 OU; -VENC100T PO
[2024-01-15] MEDS ORDERED: TAFL1DRO2 OU (12:55)
[2024-01-15] MEDS ORDERED: ONDA-282 SL (12:55)
[2024-01-15] MEDS ORDERED: AMLO1TAB25 PO (12:55)
[2024-01-15] MEDS ORDERED: ACYC200C8 PO (12:55)
[2024-01-15] MEDS ORDERED: VENC100T PO (12:55)
[2024-01-15] MEDS ORDERED: SODIUM CHLORIDE 0.9% INJ 10 ML SYR IV PRN (14:40)
[2024-01-15 15:11] LABS: HEMATOCRIT 34.6 % (36.0-47.0); HEMOGLOBIN 11.2 g/dl (12.0-15.5); MEAN CORPUSCULAR HEMOGLOBIN 28.4 pg (27.0-33.0); MEAN CORPUSCULAR HGB CONC 32.4 g/dl (32.0-36.5); MEAN CORPUSCULAR VOLUME 87.6 fl (80.0-96.0); PLATELET COUNT, AUTOMATED 100 10^3/uL (150-450); RED BLOOD COUNT 3.95 10^6/uL (4.00-5.40); WHITE BLOOD COUNT 4.7 10^3/uL (4.0-10.0)
[2024-01-15 15:25] LABS: INR 1.05; PROTHROMBIN TIME 13.4 SECONDS (12.5-14.5)
[2024-01-15] MEDS ORDERED: BRIN8DRO OU (16:53)
[2024-01-15] MEDS ORDERED: HOME MED LIST COMPLETE! XX SCH (16:55)
[2024-01-15 19:05] LABS: BLOOD UREA NITROGEN 13 MG/DL (9-23); CARBON DIOXIDE LEVEL 28 MMOL/L (20-31); CHLORIDE LEVEL 107 MMOL/L (98-107); CREATININE FOR GFR 0.92 MG/DL (0.55-1.30); GLOMERULAR FILTRATION RATE > 60.0 (>39); GLUCOSE, FASTING 90 MG/DL (74-106); POTASSIUM SERUM 3.9 MMOL/L (3.5-5.1); SODIUM LEVEL 141 MMOL/L (136-145)
[2024-01-15] MEDS ORDERED: TAFLUPROST OU SCH (21:00)
[2024-01-15] MEDS ORDERED: ENTER DRUG NAME HERE (PATIENT'S OWN MED) OU SCH (21:00)
[2024-01-15 21:28] VITALS: BP 105/79; TEMP 97.3; O2SAT 96
[2024-01-15] MEDS: HEPARIN SOD (PORCINE) 5000UNITS/ML 1ML VIAL/SYRINGE SC SCH (21:43)
[2024-01-15] MEDS: ATORVASTATIN 10 MG TAB PO SCH (21:43)
[2024-01-15] MEDS: DESMOPRESSIN ACETATE 0.1 MG TAB PO SCH (22:29)
[2024-01-15] MEDS: ACYCLOVIR 200 MG CAPSULE PO SCH (22:29)
[2024-01-15] MEDS: BRINZOLAMIDE 1% OPHTH SUSP (AZOPT) 10ML OU SCH (22:30)
[2024-01-15] MEDS: BRIMONIDINE 0.15% OPHTH SOLN 5 ML OU SCH (22:30)
[2024-01-16] VITALS (8 sets, daily range): BP systolic 102–122; BP diastolic 59–70; TEMP 97–97.5; O2SAT 93–98
[2024-01-16 06:08] LABS: MEAN CORPUSCULAR HEMOGLOBIN 28.6 pg (27.0-33.0); MEAN CORPUSCULAR HGB CONC 32.3 g/dl (32.0-36.5); MEAN CORPUSCULAR VOLUME 88.6 fl (80.0-96.0); WHITE BLOOD COUNT 3.4 10^3/uL (4.0-10.0)
[2024-01-16 06:16] LABS: LDH LACTATE DEHYDROGENASE 294 U/L (120-246)
[2024-01-16 06:17] LABS: BLOOD UREA NITROGEN 16 MG/DL (9-23); CALCIUM LEVEL 9.2 MG/DL (8.3-10.6); CARBON DIOXIDE LEVEL 26 MMOL/L (20-31); CHLORIDE LEVEL 109 MMOL/L (98-107); GLOMERULAR FILTRATION RATE > 60.0 (>39); GLUCOSE, FASTING 79 MG/DL (74-106); POTASSIUM SERUM 3.4 MMOL/L (3.5-5.1); SODIUM LEVEL 143 MMOL/L (136-145)
[2024-01-16 06:41] LABS: PLATELET COUNT, AUTOMATED 86 10^3/uL (150-450)
[2024-01-16] MEDS ORDERED: VENETOCLAX PO SCH (09:00)
[2024-01-16] MEDS: POTASSIUM CHLORIDE 10MEQ SR TABLET PO ONE (09:40)
[2024-01-16 15:13] LABS: PH BODY FLUID 7.583 UNITS (NOT ESTABLISHED); SOURCE, BODY FLUID pH PLEURAL
[2024-01-16 15:30] LABS: SOURCE, BODY FLUID PLEURAL
[2024-01-16 15:31] LABS: APPEARANCE, BODY FLUID CLOUDY (CLEAR); PLEURAL FL COLOR AMBER (COLORLESS); SOURCE, BODY FLUID GLUCOSE PLEURAL
[2024-01-16 15:32] LABS: LDH, BODY FLUID 324 U/L (NOT ESTABLISHED); SOURCE, BODY FLUID LDH PLEURAL
[2024-01-16 15:44] LABS: SOURCE, BODY FLUID TOT PROTEIN PLEURAL; TOTAL PROTEIN, BODY FLUID 3.8 G/DL (NOT ESTABLISHED)
[2024-01-16] MEDS: SODIUM CHLORIDE 0.9% INJ 10 ML SYR IV PRN (17:56)
[2024-01-17] MEDS ORDERED: UNRESOLVED PATIENT OWN MED ORDER XX SCH (00:01)
[2024-01-17] MEDS ORDERED: SODIUM CHLORIDE 0.9% INJ 10 ML SYR IV SCH (09:00)
== END 2024-01-16 18:30 | disposition home or self-care (01) | DRG 841 ==
LOC: M ED 12:42 → M ED INP 17:33 → M MSPAV 21:28
PROVIDERS: ADMIT Internal Medicine; ATTEND Internal Medicine
PROC: 0W993ZZ Drainage of Right Pleural Cavity, Percutaneous Approach (ICD-10-PCS; principal; 2024-01-16 14:00)
DX: C91.10 Chronic lymphocytic leukemia of B-cell type not having achieved remission (principal); J91.0 Malignant pleural effusion; D80.1 Nonfamilial hypogammaglobulinemia; E23.2 Diabetes insipidus; I10 Essential (primary) hypertension; E78.5 Hyperlipidemia, unspecified; H40.9 Unspecified glaucoma; D50.9 Iron deficiency anemia, unspecified; Z79.899 Other long term (current) drug therapy; Z88.0 Allergy status to penicillin; Z88.8 Allergy status to other drugs, medicaments and biological substances; Z91.041 Radiographic dye allergy status; Z91.013 Allergy to seafood; D69.6 Thrombocytopenia, unspecified

== ENCOUNTER → 2025-03-14 | Outpatient (CLI) | payer MEDICARE, OTHER ==
[~2025-03-14] MED LIST changes: +ACYC200C10 PO; +AMLO1TAB25 PO; +BRIN8DRO OU; +ONDA-282 SL; +SLOW1TAB3 PO; +TAFL1DRO2 OU; +VENC100T PO
== END ==
LOC: M RAD 10:38
PROVIDERS: ATTEND Obstetrics & Gynecology
DX: N83.202 Unspecified ovarian cyst, left side (principal); N95.0 Postmenopausal bleeding